=== PATIENT | male | born 1945 | race Caucasian/White ===

== ENCOUNTER → 2017-02-12 | Outpatient (CLI) | payer MEDICARE, OTHER ==
[~2017-02-12] MED LIST: COLACE-DPS100 MG PO; CUBICIN500 MG IV; DULCOLAX-DPS10 MG PR; FLEXERIL DPS5 MG PO; FLOMAX DPS0.4 MG PO; GLUCOPHAGE-DPS500 MG PO; HYZAAR 100-12.1 EACH PO; LOPRESSOR DPS100 MG PO; MICRO-K DPS10 MEQ PO; MILK OF MAGNESI10 ML PO; NORMAL SALINE FL5 ML IV; NORVASC5 MG PO; PROTONIX40 MG PO; SENOKOT S1 TAB PO; SYNTHROID112 MCG PO; TYLENOL DPS325 MG PO; ZYLOPRIM-DPS300 MG PO
== END | disposition home or self-care (01) ==
LOC: RAD.S 15:18
DX: M54.41 Lumbago with sciatica, right side (principal); M51.86 Other intervertebral disc disorders, lumbar region; M47.896 Other spondylosis, lumbar region; M48.06 Spinal stenosis, lumbar region